=== PATIENT | male | born 1965 | race Caucasian/White ===

== ENCOUNTER 2016-08-14 12:56 | Outpatient (RCR) | payer OTHER | END 2016-11-12 | LOC: WSOH | DX: S52.602A Unspecified fracture of lower end of left ulna, initial encounter for closed fracture (principal); W20.8XXA Other cause of strike by thrown, projected or falling object, initial encounter; Y99.0 Civilian activity done for income or pay | CPT/HCPCS: 24091; A6549 ==

== ENCOUNTER → 2016-08-14 | Outpatient (REF) | LOC: WSOH 12:59 | DX: Z02.89 Encounter for other administrative examinations (principal) ==